=== PATIENT | female | born 1990 | race Caucasian/White ===

== ENCOUNTER → 2018-09-05 | Outpatient (CLI) | payer OTHER ==
--- NOTE | 2018-09-05 12:31 | XR ---
EXAMINATION TYPE: XR wrist complete RT DATE OF EXAM: 09/05/2018 CLINICAL HISTORY: Right wrist pain TECHNIQUE: Frontal, lateral and oblique images of the right wrist are obtained. Scaphoid view was al so obtained. COMPARISON: None FINDINGS: There is no acute fracture/dislocation evident in the right wrist. The joint spaces in th e right wrist appear within normal limits. The overlying soft tissue appears unremarkable. IMPRESSION: There is no acute fracture or dislocation in the right wrist.
== END | disposition home or self-care (01) ==
LOC: RADXRMAIN 12:07
PROVIDERS: ATTEND Emergency Medicine
DX: S63.501A Unspecified sprain of right wrist, initial encounter (principal)

== ENCOUNTER → 2020-02-26 | Outpatient (CLI) | payer OTHER ==
--- NOTE | 2020-02-26 12:51 | XR ---
EXAMINATION TYPE: XR hand complete LT, XR wrist complete LT DATE OF EXAM: 02/26/2020 CLINICAL HISTORY: Left hand and wrist pain after injury TECHNIQUE: Frontal, lateral and oblique images of the left hand are obtained. Frontal, lateral and o blique images of the left wrist are obtained. Scaphoid view was also obtained. COMPARISON: None. FINDINGS: There is no acute fracture/dislocation evident in the left hand. The joint spaces in the l eft hand appear within normal limits. The overlying soft tissue appears unremarkable. There is no a cute fracture/dislocation evident in the left wrist. The joint spaces in the left wrist appear withi n normal limits. The overlying soft tissue appears unremarkable. No radiopaque foreign body IMPRESSION: There is no acute fracture or dislocation in the left wrist nor hand. No radiopaque fore ign body.
== END | disposition home or self-care (01) ==
LOC: RADXRMAIN 12:19
PROVIDERS: ATTEND Emergency Medicine
DX: S67.22XA Crushing injury of left hand, initial encounter (principal); S63.502A Unspecified sprain of left wrist, initial encounter

== ENCOUNTER → 2020-05-05 | Outpatient (CLI) | payer OTHER ==
--- NOTE | 2020-05-05 11:20 | XR ---
EXAMINATION TYPE: XR forearm RT, XR wrist complete RT DATE OF EXAM: 05/05/2020 CLINICAL HISTORY: Pain with lifting. TECHNIQUE: Two views of the right forearm are obtained. 4 views of right wrist are acquired. COMPARISON: Prior right wrist x-ray September 05, 2018.. FINDINGS: There is no acute fracture or dislocation seen in the right radius or ulna. Right elbow jimenez int appears within normal limits. The overlying soft tissue appears within normal limits. Images of the right wrist show no acute fracture or dislocation. The carpal joint spaces are maintain ed. Overlying soft tissue is unremarkable. IMPRESSION: There is no acute fracture or dislocation seen in the right forearm or wrist.
== END | disposition home or self-care (01) ==
LOC: RADXRMAIN 10:57
PROVIDERS: ATTEND Emergency Medicine
DX: M67.833 Other specified disorders of tendon, right wrist (principal); M79.631 Pain in right forearm; M25.531 Pain in right wrist

== ENCOUNTER → 2020-05-19 | Outpatient (CLI) | payer OTHER ==
--- NOTE | 2020-05-19 11:12 | XR ---
EXAMINATION TYPE: XR wrist complete RT DATE OF EXAM: 05/19/2020 COMPARISON: NONE HISTORY: 29 year-old female right wrist pain TECHNIQUE: 4 views FINDINGS: Radiocarpal and distal radial ulnar joint as well as the midcarpal compartment appear intact. No acut e fracture, subluxation, or dislocation. IMPRESSION: No acute osseous abnormality seen.
== END | disposition home or self-care (01) ==
LOC: RADXRMAIN 10:40
PROVIDERS: ATTEND Emergency Medicine
DX: M67.833 Other specified disorders of tendon, right wrist (principal)

== ENCOUNTER → 2025-02-01 | Outpatient (CLI) | payer OTHER ==
--- NOTE | 2025-02-01 14:08 | XR ---
EXAMINATION TYPE: XR finger RT DATE OF EXAM: 02/01/2025 2:02 PM COMPARISON: None. CLINICAL INDICATION: Female, 34 years old with history of S61.204A UNSP OPEN WOUND OF R RNG FNGR W/O DAMAGE, pain TECHNIQUE: XR finger RT views are submitted. FINDINGS: No displaced fracture is seen with certainty. Joint spaces are well-preserved. Soft tissue injury wi thout radiopaque foreign body. IMPRESSION: No acute displaced fracture or dislocation. [facility], , 02/01/2025 2:05 PM
== END | disposition home or self-care (01) ==
LOC: RADXRMAIN 13:40
PROVIDERS: ATTEND Emergency Medicine
DX: S61.204A Unspecified open wound of right ring finger without damage to nail, initial encounter (principal); X58.XXXA Exposure to other specified factors, initial encounter